=== PATIENT | female | born 1955 | race Caucasian/White ===

== ENCOUNTER → 2024-03-29 07:02 | Outpatient (REF) | payer MEDICARE, OTHER, SELFPAY ==
[2024-03-29 10:03] LABS: % Basophils 1.4 % (0-2); % Immature Granulocytes 0.2 % (0-0.5); % Lymphocytes 45.6 % (20.5-51.1); % Monocytes 9.5 % (1.7-9.3); % Neutrophils 39.3 % (42.2-75.2); Absolute Basophils 0.1 10^3/uL (0-0.2); Absolute Eosinophils 0.2 10^3/uL (0-0.7); Absolute Lymphocytes 2.3 10^3/uL (1.2-3.4); Absolute Monocytes 0.5 10^3/uL (0.1-0.6); Hematocrit 43.2 % (37.0-47.0); Hemoglobin 14.4 g/dL (12.0-16.0); Mean Corp Hgb Conc. 33.3 g/dL (33.0-37.0); Mean Corpuscular Hgb 31.2 pg (27.0-31.0); Mean Corpuscular Volume 93.7 fL (81.0-99.0); Mean Platelet Volume 9.9 fL (7.4-10.4); Nucleated Red Blood Cells % 0 %; Platelet Count 215 10^3/uL (130-400); Red Blood Cell Count 4.61 10^6/uL (4.20-5.40); Red Cell Dist. Width 13.9 % (11.5-14.5)
[2024-03-29 10:22] LABS: ALT (SGPT) 29 U/L (0-35); AST (SGOT) 40 U/L (14-36); Albumin 4.2 g/dl (3.5-5.0); Alkaline Phosphatase 79 U/L (38-126); Blood Urea Nitrogen 11 mg/dl (7-17); Calcium 9.5 mg/dl (8.4-10.2); Carbon Dioxide 27 mmol/L (22-30); Chloride 106 mmol/L (98-107); Glucose 91 mg/dl (70-99); HDL Cholesterol 57 mg/dl; LDL Cholesterol, Calculated 137 mg/dl; Sodium 142 mmol/L (135-145); Total Bilirubin 0.4 mg/dl (0.2-1.3); Total Cholesterol 216 mg/dl (50-199); Total Protein 6.9 g/dl (6.3-8.2); Triglyceride 111 mg/dl (10-149); Very Low Density Lipoprotein 22 mg/dl (0-30); eGFR > 60.00
[2024-03-29 10:48] LABS: TSH Reflex To Free T4 2.76 uIU/ml (0.47-4.68)
== END ==
LOC: HWLAB 07:02
PROVIDERS: ATTENDING PHYSICIAN Internal Medicine
DX: I10 Essential (primary) hypertension (principal); E66.9 Obesity, unspecified
CPT/HCPCS: 36415; 80053; 80061; 84443; 85025

== ENCOUNTER 2024-07-09 23:07 | Inpatient (IN) | payer MEDICARE, OTHER, SELFPAY ==
[2024-07-09 19:37] VITALS: BP 154/87
[2024-07-09 20:12] VITALS: BMI 33.0
--- NOTE | 2024-07-09 20:13 | ED.SKININJ ---
HPI-Injury
<Jacey Zimmermna, DAY CARE WORKER - Last Filed: 07/09/24 21:07>
General
Chief Complaint: Bite
Source: patient
Exam Limitations: none
Time Seen by Provider: 07/09/24 19:49
Nursing documentation reviewed up to this point in time: agreed with
History of Present Illness-Injury
Initial Injury comments:
68 yo female w h/o HTN, sleep apnea w CPAP, presents with infected dog bite left hand. Her basset hound bit her 2 days ago while playing tug-of-war. She has had 3 doses of Augmentin 875 mg, last dose 9 a.m. Denies fever/chills. Denies n/v. Area is
worsening.
Past History
<Jacey Zimmerman, DAY CARE WORKER - Last Filed: 07/09/24 21:07>
Past History
ED Past Medical History: HTN
ED Past Surgical History: Gynecological and Other (Nephrectomy)
Social History
Tobacco: Non-smoker
Alcohol: Occasional
Personal: Partner
Living: with roommate
Employment: Not employed
Review of Systems
<Jacey Zimmerman, DAY CARE WORKER - Last Filed: 07/09/24 21:07>
Review of Systems
Allergies reviewed?: Yes
All Other Systems: ROS reviewed and negative except as documented in HPI and ROS
Constitutional: Denies fever or chills
ABD/GI: Denies nausea
Skin: Reports other (Infected dog bite left hand)
Phy Exam
<Jacey Zimmerman, DAY CARE WORKER - Last Filed: 07/09/24 21:07>
Physical Exam
Physical Exam:
GENERAL: No acute distress. A&Ox3.
CONSTITUTIONAL: Afebrile.
RESPIRATORY: Regular respirations, nonlabored, lungs clear.
CARDIOVASCULAR: Regular rate and rhythm, no murmurs, no rubs.
GI: Soft, nontender, normal BS
MUSCULOSKELETAL: Significant swelling dorsum of left hand. Erythema of the dorsum extending one third of the forearm. The fingers are swollen but not erythematous, all tendon function intact but limited due to swelling and discomfort. Brisk
capillary refill. Well perfused.
SKIN: Warm, dry, pink. There is a puncture on the lateral dorsum left hand that is draining purulent material.
PSYCH: Normal mood and affect. Well kept, interactive and appropriate
NEUROLOGIC: Awake, alert and oriented. No focal neurological deficits. Sensation intact to touch distal finger
Course
<Jacey Zimmerman, DAY CARE WORKER - Last Filed: 07/09/24 21:07>
Orders/Labs/Results
Orders:
Orders
07/09/24 20:10
Wound Culture [Wound/Abscess/Other Culture] Urgent
JITENDRA Source: Hand
Specimen Description: Left
Date Specimen was Collected: 07/09/24
Time Specimen was Collected: 20:06
Comment: dog bite dorsum
07/09/24 20:20
Complete Blood Count/With Diff Urgent
Comprehensive Metabolic Panel Urgent
07/09/24 20:24
Ampicillin/Sulbactam 3 G [Unasyn] 3 gm 0.9% Sodium Chloride 100 ml [Nss] 100 ml IV NOW
07/09/24 22:00
Flush (0.9% Sodium Chloride) [Flush (Nss)] See Dose Instructions IV PER PROTOCOL
Abnormal Lab Results
07/09/24
20:20
WBC 11.1 H 10^3/uL
(4.8-10.8)
MCH 32.2 H pg
(27.0-31.0)
Absolute Neuts (auto) 8.5 H 10^3/uL
(1.4-6.5)
Absolute Monos (auto) 0.9 H 10^3/uL
(0.1-0.6)
Neutrophils % 76.9 H %
(42.2-75.2)
Lymphocytes % 13.8 L %
(20.5-51.1)
Glucose 119 H mg/dl
(70-99)
AST 83 H U/L
(14-36)
ALT 59 H U/L
(0-35)
07/09/24 20:20
07/09/24 20:20
Vital Signs
Initial and Last Documented VS:
Initial Vital Signs
Temp Pulse Resp BP Pulse Ox
97.8 F 84 18 154/87 98
07/09/24 19:37 07/09/24 19:37 07/09/24 19:37 07/09/24 19:37 07/09/24 19:37
Last Documented Vital Signs
Temp Pulse Resp BP Pulse Ox
97.8 F 84 18 154/87 98
07/09/24 19:37 07/09/24 19:37 07/09/24 19:37 07/09/24 19:37 07/09/24 19:37
<Selwyn Simental, DO - Last Filed: 07/09/24 20:23>
Orders/Labs/Results
Orders:
Orders
07/09/24 20:10
Wound Culture [Wound/Abscess/Other Culture] Urgent
JITENDRA Source: Hand
Specimen Description: Left
Date Specimen was Collected: 07/09/24
Time Specimen was Collected: 20:06
Comment: dog bite dorsum
07/09/24 20:20
Complete Blood Count/With Diff Urgent
Comprehensive Metabolic Panel Urgent
07/09/24 20:24
Ampicillin/Sulbactam 3 G [Unasyn] 3 gm 0.9% Sodium Chloride 100 ml [Nss] 100 ml IV NOW
07/09/24 22:00
Flush (0.9% Sodium Chloride) [Flush (Nss)] See Dose Instructions IV PER PROTOCOL
Abnormal Lab Results
07/09/24
20:20
WBC 11.1 H 10^3/uL
(4.8-10.8)
MCH 32.2 H pg
(27.0-31.0)
Absolute Neuts (auto) 8.5 H 10^3/uL
(1.4-6.5)
Absolute Monos (auto) 0.9 H 10^3/uL
(0.1-0.6)
Neutrophils % 76.9 H %
(42.2-75.2)
Lymphocytes % 13.8 L %
(20.5-51.1)
Glucose 119 H mg/dl
(70-99)
AST 83 H U/L
(14-36)
ALT 59 H U/L
(0-35)
07/09/24 20:20
07/09/24 20:20
Vital Signs
Initial and Last Documented VS:
Initial Vital Signs
Temp Pulse Resp BP Pulse Ox
97.8 F 84 18 154/87 98
07/09/24 19:37 07/09/24 19:37 07/09/24 19:37 07/09/24 19:37 07/09/24 19:37
Last Documented Vital Signs
Temp Pulse Resp BP Pulse Ox
97.8 F 84 18 154/87 98
07/09/24 19:37 07/09/24 19:37 07/09/24 19:37 07/09/24 19:37 07/09/24 19:37
<Jacey Zimmerman, DAY CARE WORKER - Last Filed: 07/09/24 21:07>
MDM/Problems Addressed
Differential Diagnosis Includes:
cellulitis
MDM/Problems Addressed:
68 yo female w h/o HTN, sleep apnea w CPAP, presents with infected dog bite left hand. Her basset hound bit her 2 days ago while playing tug-of-war. She has had 3 doses of Augmentin 875 mg, last dose 9 a.m. Denies fever/chills. Denies n/v. Area is
worsening.
Afebrile
Pt had hand xray yesterday: IMPRESSION:
Extensive soft tissue edema/swelling within the hand. No fractures identified. No radiopaque foreign bodies within the soft tissue.
Degenerative changes.
Case discussed with Dr. Simental who examined pt.
8:30 p.m.
I&D at puncture site with moderate amount pus drainage.
Wound culture pending
Plan: admit, IV antibiotics.
Hospitalist notified of admission.
<Jacey Zimmerman DAY CARE WORKER - Last Filed: 07/09/24 21:07>
*Critical Care Note
Total Time (30-74mins, 75-104mins- exclusive of procedures): Not Applicable
ED Attending Note
<Jacey Zimmerman DAY CARE WORKER - Last Filed: 07/09/24 21:07>
-
Portions of this chart may have been created with voice recognition software.� Occasional wrong word or��sound alike� substitutions may have occurred due to the inherent limitations of voice recognition software.
<Selwyn Simental, DO - Last Filed: 07/09/24 20:23>
ED Attending Note
Patient seen and examined by attending physician: Yes
I performed the substantive portion of visit, reviewed & personally made and approve the management plan that is documented in note by myself or XUAN.: Yes
ED Attending Note:
I have seen and evaluated the patient with a [id number] encounter. I have spoken to the advance practicer provider and involved in the medical history, the physical exam, medical decision making.
Evaluation and management service: agree unless noted differently below.
Results interpretation: agree unless noted differently below.
Focused HPI: 68-year-old female presenting with worsening swelling and pain to her left wrist. This is from a recent dog bite. She started amoxicillin but symptoms are worse
Physical exam: Significant swelling to the dorsum of left hand with active purulent discharge at the bite site
Medical Decision Making: Will open up the abscess to allow drainage and start IV antibiotics given failure of outpatient therapy. Will admit
Discharge Plan
Departure
Patient Disposition: Admit
Date of Disposition: 07/09/24
Time of Disposition: 20:37
Admit to: Med/Surg
Presentation/result/management discussed w/ accepting MD/DO: Hospitalist
Condition: Fair
Discharge Problem:
Dog bite of left hand with infection, Cellulitis of left hand
Prescriptions:
No Action
amlodipine 5 mg tablet
5 mg PO DAILY
Nature's Bounty 1 Tablet
1 tab PO DAILY
Referrals:
Louise Haynes DO [Family Provider] -
Interventions
Interventions:
*Risk Screen - Suicide Last Done: 07/09/24 19:29
*General Assessment Last Done: 07/09/24 19:37
*Neglect/Abuse Screening Last Done: 07/09/24 19:37
ED-Skin Assessment Last Done: 07/09/24 20:25
Discharge Date and Time
Print Language: ESTONIAN
[2024-07-09 20:30] LABS: % Basophils 0.5 % (0-2); % Eosinophils 0.5 % (0-6); % Immature Granulocytes 0.4 % (0-0.5); % Lymphocytes 13.8 % (20.5-51.1); % Monocytes 7.9 % (1.7-9.3); % Neutrophils 76.9 % (42.2-75.2); Absolute Basophils 0.1 10^3/uL (0-0.2); Absolute Eosinophils 0.1 10^3/uL (0-0.7); Absolute Lymphocytes 1.5 10^3/uL (1.2-3.4); Absolute Monocytes 0.9 10^3/uL (0.1-0.6); Absolute Neutrophils 8.5 10^3/uL (1.4-6.5); Hemoglobin 14.7 g/dL (12.0-16.0); Mean Corpuscular Hgb 32.2 pg (27.0-31.0); Mean Corpuscular Volume 92.1 fL (81.0-99.0); Mean Platelet Volume 9.7 fL (7.4-10.4); Nucleated Red Blood Cells % 0 %; Platelet Count 208 10^3/uL (130-400); Red Blood Cell Count 4.56 10^6/uL (4.20-5.40); Red Cell Dist. Width 13.5 % (11.5-14.5); White Blood Cell Count 11.1 10^3/uL (4.8-10.8)
[2024-07-09] MEDS: UNASYN IV (20:41)
[2024-07-09 20:43] LABS: ALT (SGPT) 59 U/L (0-35); AST (SGOT) 83 U/L (14-36); Albumin 4.5 g/dl (3.5-5.0); Alkaline Phosphatase 92 U/L (38-126); Blood Urea Nitrogen 12 mg/dl (7-17); Calcium 9.7 mg/dl (8.4-10.2); Carbon Dioxide 25 mmol/L (22-30); Chloride 100 mmol/L (98-107); Estimated Creatinine Clearance 74 ml/min; Glucose 119 mg/dl (70-99); Potassium 3.9 mmol/L (3.5-5.1); Sodium 136 mmol/L (135-145); Total Bilirubin 0.7 mg/dl (0.2-1.3); Total Protein 7.1 g/dl (6.3-8.2); eGFR > 60.00
--- NOTE | 2024-07-09 21:26 | HPS.HSE ---
Family Physician
-
Family Physician: Louise Haynes DO
Chief Complaint
-
dog bite
History of Present Illness
The patient is a 68 year old female with PMH significant for HTN and Sleep apnea on nightly CPAP (does not recall settings), who presented to the ED due to left hand dog bite Friday. She was playing with her own dog, and the dog accidentally bit
her. The dog is up to date with rabies shots and vaccines. Shortly after the bite, the wound became painful and swollen. She was started OP on Augmentin, but the pain became worse with tracking of redness past her wrist up to her forearm, pain, and
swelling to the finger tips. The bite was opened up/lanced open in the ED, purulent pus discharge was sent for cultures. She has had chills and nausea, no vomiting, no fever, no CP, no SOB, nor diarrhea.
Medical History
Past Medical History
Past Medical History: Reports Cancer (endometrial), HTN and Other (JULIETA on CPAP, kidney donor)
Past Surgical History: Reports Gynocological (HARSHA) and Other (one kidney, kidney donor)
Social History
Tobacco: Non-smoker
Alcohol: Daily (1-2 glasses of wine)
Drug: None
Personal: Other (lives with significant other)
Family History
Family History: CAD and Cancer
Allergies / Home Medications
Allergies reflects when Allergies were last updated in [facility].
Home Medications with original date entered in [facility]
Allergy/Medication List:
Allergies
Allergy/AdvReac Type Severity Reaction Status Date / Time
cephalexin Allergy Intermediate Swelling Verified 07/09/24 19:37
Home Medications
amlodipine 5 mg tablet 5 mg PO DAILY 07/09/24
multivitamin with calcium carb and iron tablet 1 tab PO DAILY 07/09/24
Review of Systems
-
A 12 point ROS was completed and negative except as noted: Yes
Physical Exam
Vital Signs
Vital Signs
Temp Pulse Resp BP Pulse Ox
97.8 F 84 18 154/87 98
07/09/24 19:37 07/09/24 19:37 07/09/24 19:37 07/09/24 19:37 07/09/24 19:37
Physical Exam
General: Well Developed, Well Nourished, No Apparent Distress, Conversant and Other (uncomfortable due to left hand pain)
HEENT: NormoCephalic, Anicteric and Moist mucous membranes
Respiratory: Clear
Cardiac: S1/S2 and Regular Rhythm
GI: Soft, Non Tender and Non Distended
Musculoskeletal: No Clubbing, No Cyanosis and No Edema
Skin: Warm, Dry and Other (left hand swollen, puncture wound left thenar region, normal capillary refill, tracking of redness up to forearm, dermatographia noticed on ventral aspect forearm that is new and nonpruritic)
Neuro: AO x 3 and No Motor Deficits
Psych: Calm
Laboratory Results
-
07/09/24 20:20
07/09/24 20:20
Laboratory Results
Total Bilirubin 0.7 mg/dl (0.2-1.3) 07/09/24 20:20
AST 83 U/L (14-36) H 07/09/24 20:20
ALT 59 U/L (0-35) H 07/09/24 20:20
Alkaline Phosphatase 92 U/L (38-126) 07/09/24 20:20
Data Reviewed
-
Diagnostic Radiology: Report Reviewed by me (hand x-ray Extensive soft tissue edema/swelling within the hand. No fractures identified. No radiopaque foreign bodies within the soft tissue.)
Impression/Plan
-
IMPRESSION:
The patient is a 68 year old female with PMH significant for HTN and Sleep apnea on nightly CPAP (does not recall settings), who presented to the ED due to left hand dog bite Friday. She was playing with her own dog, and the dog accidentally bit
her. The dog is up to date with rabies shots and vaccines. Shortly after the bite, the wound became painful and swollen. She was started OP on Augmentin, but the pain became worse with tracking of redness past her wrist up to her forearm, pain, and
swelling to the finger tips. The bite was opened up/lanced open in the ED, purulent pus discharge was sent for cultures. She has had chills and nausea, no vomiting, no fever, no CP, no SOB, nor diarrhea.
#Infected dog bite wound left hand that has progressively worsened after 48 hours despite oral antibiotics, lymphangitic spread
-X-ray with Extensive soft tissue edema/swelling within the hand. No fractures identified. No radiopaque foreign bodies within the soft tissue.
-Ortho consult placed
-cont IV abx Unasyn 3 g IV Q6H
-pending wound cultures
-supportive care, pain meds if needed, elevation, wound care
#JULIETA- nightly CPAP, pt does not have her personal CPAP , will use RT overnight
#HTN
-cont amlodipine and monitor
#Transaminitis AST 83 ALT 59
-follow labs, unclear etiology, history of elevated LFTs
DVT proph- PCDs
Full Code
[2024-07-09 21:48] VITALS: BP 142/67
[2024-07-10] VITALS (7 sets, daily range): BP systolic 134–150; BP diastolic 72–79; PULSE 80–84; BMI 31.4
[2024-07-10] MEDS: NSS 1000 IV (00:22)
[2024-07-10] MEDS: TYLENOL 650 MG PO (00:25)
--- NOTE | 2024-07-10 00:59 | PTCARENOTE ---
received pt from ed via stretcher. pt ambulated to bed without assist. aaox3, complains of pain in left hand with movement or touching. left hand wrapped in kerlix. oriented pt to floor, call belle within reach
[2024-07-10] MEDS: UNASYN IV ×4 (01:01→19:59)
[2024-07-10 06:48] LABS: % Basophils 0.8 % (0-2); % Eosinophils 0.7 % (0-6); % Immature Granulocytes 0.4 % (0-0.5); % Lymphocytes 19.8 % (20.5-51.1); % Monocytes 9.5 % (1.7-9.3); % Neutrophils 68.8 % (42.2-75.2); Absolute Basophils 0.1 10^3/uL (0-0.2); Absolute Eosinophils 0.1 10^3/uL (0-0.7); Absolute Lymphocytes 1.7 10^3/uL (1.2-3.4); Absolute Monocytes 0.8 10^3/uL (0.1-0.6); Absolute Neutrophils 5.9 10^3/uL (1.4-6.5); Hematocrit 39.6 % (37.0-47.0); Hemoglobin 13.7 g/dL (12.0-16.0); Mean Corp Hgb Conc. 34.6 g/dL (33.0-37.0); Mean Corpuscular Hgb 32.8 pg (27.0-31.0); Mean Corpuscular Volume 94.7 fL (81.0-99.0); Mean Platelet Volume 10.4 fL (7.4-10.4); Nucleated Red Blood Cells % 0 %; Platelet Count 204 10^3/uL (130-400); Red Blood Cell Count 4.18 10^6/uL (4.20-5.40); Red Cell Dist. Width 13.5 % (11.5-14.5); White Blood Cell Count 8.6 10^3/uL (4.8-10.8)
[2024-07-10 07:00] LABS: INR 1.08; PT 13.8 Sec (11.4-14.6)
[2024-07-10 07:47] LABS: ALT (SGPT) 50 U/L (0-35); AST (SGOT) 56 U/L (14-36); Albumin 3.8 g/dl (3.5-5.0); Alkaline Phosphatase 85 U/L (38-126); Blood Urea Nitrogen 9 mg/dl (7-17); Carbon Dioxide 25 mmol/L (22-30); Chloride 105 mmol/L (98-107); Estimated Creatinine Clearance 84 ml/min; Glucose 96 mg/dl (70-99); Potassium 3.6 mmol/L (3.5-5.1); Sodium 142 mmol/L (135-145); Total Bilirubin 0.6 mg/dl (0.2-1.3); Total Protein 6.3 g/dl (6.3-8.2); eGFR > 60.00
[2024-07-10] MEDS: NORVASC 5 MG PO (08:11)
--- NOTE | 2024-07-10 09:19 | CON.ORTHO ---
Consultation
-
Date/Time Consultation Requested: Jul 06/0006
Date/Time Consultation Performed: Jul 06/0815
Requesting Provider: Jone
Performing Provider: Yonathan for [facility]
Reason for Consultation: Left hand cellulitis s/p dog bite
Consultation - Orthopedics
History
Dictation#[id number]
Asked to see this pleasant 68 y/o white female with PMH endometrial Ca, HTN, JULIETA on CPAP, kidney donor, who was playing with her dog on Friday and was inadvertently bitten on the dorsal lateral left wrist/hand. Fortunately she is RHD. Dog's
vaccines up to date. Presented to her PCP on and was started on Augmentin. She was refractory to po ABX as symptoms were worsening. She presented to the ED last evening and her hand was lanced in the ED and packed with iodoform. Loose
sterile dressings applied. They sent for wound Cx, which are pending, and she was started on IV Unasyn. She originally presented with red streaking up the forearm but as of this AM she reports that has resolved. She is feeling and looking better
subjectively, but still sore and swollen. We were requested in consultation with regards to her hand injury
Allergies / Home Medications
Allergy/AdvReac Type Severity Reaction Status Date / Time
cephalexin Allergy Intermediate Swelling Verified 07/09/24 19:37
�Medication �Instructions �Recorded
amlodipine 5 mg tablet 5 mg PO DAILY Blood Pressure 07/09/24
multivitamin with calcium carb and 1 tab PO DAILY Supplement 07/09/24
iron tablet
Vital Signs / Lab Results
Temp Pulse Resp BP Pulse Ox
98.9 F 70 20 134/76 99
07/10/24 07:29 07/10/24 08:11 07/10/24 07:29 07/10/24 08:11 07/10/24 07:29
07/10/24 05:39
07/10/24 05:39
Assessment / Plan
PE: Afeb. Left hand dressed. Upon removal small punctate wound over the dorsal lateral wrist/hand. Iodoform packing visible, scant drainage. Surrounding edema with very mild erythema. No evidence of lymphangitis this AM. Wrist and hand stiff due to
swelling, but makes half a composite fist. Passive wrist motion not terribly painful. Elbow nontender. DNVI LUE
WBC WNL
Xrays: No fracture. Soft tissue swelling
Impression: Dog bite cellulitis Left wrist/hand
Plan: Discussed with the patient bedside. She appears to be responding to IV ABX. Currently Afeb WBC WNL. Will leave packing and loose dressing in place. Consider warm soaks after packing removal (tomorrow/Friday). Continue IV ABX. Will observe for
now. Have tentatively posted her to the OR schedule for tomorrow AM in case clinical picture worsens. This would be for a left wrist/hand I&D via [facility]. Operative site marked as the left wrist/hand. Surgical consent obtained. OR notified. NPO pMN.
Will make further decisions regarding OR in the AM. Will follow wound Cx, but this will not likely change treatment course.
--- NOTE | 2024-07-10 14:33 | W.PN.HOSP.TC ---
Today's Communication/Plan
-
continue abx
for tentative OR tomorrow
Assessment / Plan
Assessment / Plan
#Infected dog bite wound left hand
Failure of oral abx therapy
Lymphangitis of LUE
-X-ray with Extensive soft tissue edema/swelling within the hand. No fractures identified. No radiopaque foreign bodies within the soft tissue.
-Ortho evaluated and patient have been put on OR list tentatively for tomorrow.
-cont IV abx Unasyn 3 g IV Q6H
-pending wound cultures
#JULIETA
- nightly CPAP, pt does not have her personal CPAP
#HTN
-cont amlodipine and monitor
#Transaminitis AST 83 ALT 59
-follow labs, unclear etiology, history of elevated LFTs
DVT proph- PCDs
Full Code
Anticipated Discharge: Within 24 hours
Subjective/Interval History
-
Date of Service: July 10, 2024
some left hand pain
afebrile in night
no new issues
Objective Data
-
Labs:
Laboratory Results
07/10/24
05:39
WBC 8.6
Hgb 13.7
Hct 39.6
Plt Count 204
PT 13.8
INR 1.08
Sodium 142
Potassium 3.6
Chloride 105
Carbon Dioxide 25
BUN 9
Creatinine 0.6
Glucose 96
Calcium 9.0
Total Bilirubin 0.6
AST 56 H
ALT 50 H
Alkaline Phosphatase 85
Vital Signs:
Vital Signs
Temp Pulse Resp BP Pulse Ox
98.9 F 70 20 134/76 99
07/10/24 07:29 07/10/24 08:11 07/10/24 07:29 07/10/24 08:11 07/10/24 07:29
Review of Systems
-
Respiratory: Reports No Symptoms
Cardiac: Reports No Symptoms
Abdomen/GI: Reports No Symptoms
Physical Exam
-
General: No Apparent Distress and Comfortable
HEENT: Negative Oxygen
Respiratory: Clear to Auscultation
Cardiac: Regular Rhythm and S1/S2; Negative Murmur or Rub
GI: Soft, Nontender, Nondistended and Normal Bowel Sounds
Musculoskeletal: No Edema and Other (Left hand dressing in place)
Neuro: Awake, Alert, Oriented, No Motor Deficits and Nonfocal/Grossly Intact
Psych: Calm
[2024-07-11] MEDS: UNASYN IV ×4 (02:04→19:21)
[2024-07-11 03:10] VITALS: PULSE 88
[2024-07-11 07:30] VITALS: BP 111/51
[2024-07-11] MEDS: NORVASC 5 MG PO (08:24)
--- NOTE | 2024-07-11 08:26 | W.PN.UPDATE ---
Update Note
Progress Note Update
Left hand erythema improved dramatically but edema persists. Packing removed and dog bite then cleaned with Betadine. ROM diminished but only minimal pain w/ ROM testing. Light dressing applied. DNVI. No surgery at this time but continue to observe
while continuing IV ABXs. Initiate dilute Hibiclens soak. Elevation to control edema. Regular diet today but NPO after MN (only in the outside chance she worsens and needs to have I & D). Re-eval in am. If improving switch to oral ABX then home
tomorrow. Wound culture pending.
--- NOTE | 2024-07-11 13:13 | W.PN.HOSP.TC ---
Today's Communication/Plan
-
warm water soak
continue IV abx
tentative OR tomorrow based on clinical course
Assessment / Plan
Assessment / Plan
#Infected dog bite wound left hand
Failure of oral abx therapy
Lymphangitis of LUE
-X-ray with Extensive soft tissue edema/swelling within the hand. No fractures identified. No radiopaque foreign bodies within the soft tissue.
-cont IV abx Unasyn 3 g IV Q6H
-wound culture no growth so far.
-Ortho re-evluated today and recommended to continue IV abx for now. may need OR tomorrow.
-Hibiclans soaks ordere but no available, warm water soak to be done instead.
#JULIETA
- nightly CPAP, pt does not have her personal CPAP
#Essential HTN
-cont amlodipine and monitor
#Transaminitis AST 83 ALT 59
-follow labs, unclear etiology, history of elevated LFTs
DVT proph- PCDs
Full Code
Anticipated Discharge: 24 - 48 hours
Subjective/Interval History
-
Date of Service: July 11, 2024
denies pain in left hand
afebrile overnight
no other reported problems
Objective Data
-
Vital Signs:
Vital Signs
Temp Pulse Resp BP Pulse Ox
98.4 F 59 16 111/51 96
07/11/24 07:30 07/11/24 08:24 07/11/24 07:30 07/11/24 08:24 07/11/24 07:30
I&O
07/10/24 07/11/24 07/12/24
06:59 06:59 06:59
Intake Total 840 / 840
Balance 840 / 840
Review of Systems
-
Respiratory: Reports No Symptoms
Cardiac: Reports No Symptoms
Abdomen/GI: Reports No Symptoms
Physical Exam
-
General: No Apparent Distress and Comfortable
HEENT: Negative Oxygen
Respiratory: Clear to Auscultation
Cardiac: Regular Rhythm and S1/S2; Negative Murmur or Rub
GI: Soft, Nontender, Nondistended and Normal Bowel Sounds
Musculoskeletal: No Edema and Other (Left hand dressing in place, swollen fingers)
Neuro: Awake, Alert, Oriented, No Motor Deficits and Nonfocal/Grossly Intact
Psych: Calm
[2024-07-11 15:25] VITALS: BP 116/61
[2024-07-11 22:19] VITALS: PULSE 80
[2024-07-11 23:54] VITALS: BP 149/76
[2024-07-12] MEDS: UNASYN IV ×3 (01:45→14:15)
[2024-07-12] MEDS: FLUSH (NSS) 2 FLUSH IV ×2 (01:50→08:20)
[2024-07-12 03:06] VITALS: PULSE 81
--- NOTE | 2024-07-12 06:52 | W.PN.HOSP.TC ---
Today's Communication/Plan
-
-Discharged today after receiving next IV Unasyn
-Continue Augmentin PO at home .
Assessment / Plan
Assessment / Plan
Impression: 68 year old female with PMH significant of HTN and Sleep apnea on nightly CPAP (does not recall settings) who presented to the ED due to left hand dog bite Friday. She was playing with her own dog, and the dog accidentally bit her.
Shortly after the bite, the wound became painful and swollen. She was started on PO Augmentin on by her PCP, but the pain became worse with tracking of redness past her wrist up to her forearm, pain, and swelling to the finger tips. The
bite was opened up/lanced open in the ED, purulent pus discharge was sent for cultures. The patient was admitted to hospital and was started on IV Unasyn 3 g IV Q6H. Culture result did show no growth. Patient reports her hand swollen is better and
the redness decreased on her left hand. Orthopedic team saw her today and recommended to continue IV ABX with a hopeful transition to po in the next 24-48 upon discharge.
#Infected wound on left hand due dog bite
-Failure of oral abx therapy
-Lymphangitis of LUE: seems resolved. No phsical exam finding
-X-ray with Extensive soft tissue edema/swelling within the hand. No fractures identified. No radiopaque foreign bodies within the soft tissue
-Cont IV abx Unasyn 3 g IV Q6H
-WBC:5.5 0n 07/12 which dropped from 11.1 on 07/09
-Wound culture:no growth
-Ortho re-evaluated on 07/12:Continue warm water soaks. Continue with wrist, hand, and finger ROM, which will help with swelling. Will allow a diet. No need for surgery today. Continue IV ABX with a hopeful transition to po in the next 24-48
upon discharge. recommend Orthopedic FU at outpatient setting
-Will continue Augmentin at home
#JULIETA
- Nightly CPAP, pt does not have her personal CPAP
#Essential HTN
-Cont amlodipine and monitor
#Transaminitis
- AST 83 ALT 59
-follow labs, unclear etiology, history of elevated LFTs
DVT proph- PCDs
Full Code
Anticipated Discharge: Today
Subjective/Interval History
-
Date of Service: July 12, 2024
The patient reported feeling her hand still swollen but getting some improvement. She reports less redmess on her left hand comparing to yesterday.
Objective Data
-
Labs:
Laboratory Results
07/12/24
06:00
WBC Pending
Hgb Pending
Hct Pending
Plt Count Pending
Sodium Pending
Potassium Pending
Chloride Pending
Carbon Dioxide Pending
BUN Pending
Creatinine Pending
Glucose Pending
Calcium Pending
Vital Signs:
Vital Signs
Temp Pulse Resp BP Pulse Ox
99.5 F 70 18 149/76 99
07/11/24 23:54 07/11/24 23:54 07/11/24 23:54 07/11/24 23:54 07/11/24 23:54
I&O
07/10/24 07/11/24 07/12/24
06:59 06:59 06:59
Intake Total 840 / 840 360 / 360
Balance 840 / 840 360 / 360
Review of Systems
-
EENT: Reports No Symptoms Reported
Respiratory: Reports No Symptoms
Cardiac: Reports No Symptoms
Abdomen/GI: Reports No Symptoms
Genitourinary: Reports No Symptoms
Musculoskeletal: Reports Other (See HPI )
Skin: Reports No Symptoms and Other
Neuro: Reports No Symptoms
Physical Exam
-
General: Well Developed and Well Nourished
HEENT: Normocephalic and Atraumatic
Respiratory: Clear to Auscultation
Cardiac: Regular Rhythm and S1/S2
GI: Soft and Nontender
Musculoskeletal: Other ((left hand swollen, puncture wound left thenar region, some yellow drainage on the bandage) )
Skin: Warm
Neuro: Awake, Alert and Oriented
[2024-07-12 08:08] VITALS: BP 127/72
[2024-07-12] MEDS: NORVASC 5 MG PO (08:18)
[2024-07-12 08:20] LABS: Hematocrit 38.8 % (37.0-47.0); Hemoglobin 13.3 g/dL (12.0-16.0); Mean Corp Hgb Conc. 34.3 g/dL (33.0-37.0); Mean Corpuscular Hgb 32.7 pg (27.0-31.0); Mean Corpuscular Volume 95.3 fL (81.0-99.0); Mean Platelet Volume 9.5 fL (7.4-10.4); Platelet Count 224 10^3/uL (130-400); Red Blood Cell Count 4.07 10^6/uL (4.20-5.40); Red Cell Dist. Width 13.5 % (11.5-14.5); White Blood Cell Count 5.5 10^3/uL (4.8-10.8)
[2024-07-12] MEDS: FLUSH (NSS) 1 FLUSH IV (08:22)
[2024-07-12 08:56] LABS: Blood Urea Nitrogen 10 mg/dl (7-17); Calcium 9.3 mg/dl (8.4-10.2); Carbon Dioxide 25 mmol/L (22-30); Chloride 106 mmol/L (98-107); Estimated Creatinine Clearance 84 ml/min; Glucose 114 mg/dl (70-99); Potassium 3.8 mmol/L (3.5-5.1); Sodium 144 mmol/L (135-145); eGFR > 60.00
--- NOTE | 2024-07-12 10:50 | W.PN.UPDATE ---
Update Note
Progress Note Update
Patient with notable improvement of the left wrist and hand. Still some scant drainage from the I&D (bedside) site. erythema has essentially resolved. No evidence of lymphangitis. Expected edema. Passive ranging of the wrist without pain.
Fingers are still a bit stiff. I have advised as much elevation as possible. Continue warm water soaks. Continue with wrist, hand, and finger ROM, which will help with swelling. Will allow a diet. No need for surgery today. Continue IV ABX
with a hopeful transition to po in the next 24-48 upon discharge. recommend an outpatient orthopedic follow-up 3 to 5 days after discharge for clinical assessment
--- NOTE | 2024-07-12 13:11 | W.DCSUMMARY ---
Discharge Summary
Discharge Data
Date of Admission: 07/09/24
Date of Discharge: 07/12/24
-
Pending Results: No
Hospital Course
Principal Discharge diagnosis: Infected wound on left hand due dog bite
Chronic problems: JULIETA, HTN, Transaminitis
Hospital Course : 68 year old female with PMH significant of HTN and Sleep apnea on nightly CPAP (does not recall settings) who presented to the ED on 07/09 due to left hand dog bite Friday. She was playing with her own dog, and the dog
accidentally bit her. Shortly after the bite, the wound became painful and swollen. She was started on PO Augmentin on on 07/08 by her PCP, but the pain became worse with tracking of redness past her wrist up to her forearm, pain, and
swelling to the finger tips. The bite was opened up/lanced open in the ED, purulent pus discharge was sent for cultures. The patient was admitted to hospital and was started on IV Unasyn 3 g IV Q6H. Culture result did show no growth. Patient
reports her hand swollen is better and the redness decreased on her left hand today on 07/12. Orthopedic team saw her today and recommended to continue IV ABX with a hopeful transition to PO in the next 24-48 upon discharge and follow up with
Ortho clinic at Outpatient setting.
Problem #1: Infected wound on left hand due dog bite: The patient was started on IV Unasyn at admission. She reports less swelling and less redness on her hand. She does not have fever and WBC count results are in normal limits. Ortho
re-evaluated the patient today (07/12) recommending to continue warm water soaks. Continue with wrist, hand, and finger ROM, which will help with swelling. Will allow a diet. No need for surgery today. Continue IV ABX with a hopeful transition
to PO in the next 24-48 upon discharge. recommend Orthopedic FU at outpatient setting
-Will continue Augmentin at home
Other Problems #2: JULIETA, HTN, Transaminitis. Other chronic medical problems were rigoberto and did not require additional treatment.
Important imaging studies:
Hand X Ray on 07/08:
IMPRESSION:
Extensive soft tissue edema/swelling within the hand. No fractures identified. No radiopaque foreign bodies within the soft tissue.
Degenerative changes detailed above.
Discharge Plan
-
Patient Disposition: Home (Routine Discharge)
Discharge Diagnosis/Procedures: Left hand dog bite and cellulitis
Condition: Fair
Diet: Regular
Activity: As tolerated
Driving Restrictions: As prior to admission
Bathing Restrictions: OK to Shower
Referrals:
Jeff Smith PA-C [Specified Professional Personl] - in three to four days (post discharge date)
Louise Haynes DO [Family Provider] - in one week
Prescriptions:
New
amoxicillin-pot clavulanate 875-125 mg tablet
1 tab PO BID Qty: 10 0RF
Continued
amlodipine 5 mg tablet
5 mg PO DAILY
multivitamin-calcium carb-iron Tablet
1 tab PO DAILY
Discharge Orders:
Discharge Patient (As Directed); Ordered 07/12/24
Ordered By: Joe Gupta
Discharge Date and Time
Print Language: KHMER
--- NOTE | 2024-07-12 14:09 | W.PN.UPDATE ---
Update Note
Progress Note Update
I saw and evaluated the patient. I reviewed the resident�s note and agree with findings and plan as documented in the resident�s note.
#Infected dog bite wound left hand
Failure of oral abx therapy
Lymphangitis of LUE
-X-ray with Extensive soft tissue edema/swelling within the hand. No fractures identified. No radiopaque foreign bodies within the soft tissue.
-cont IV abx Unasyn 3 g IV Q6H
-wound culture no growth so far.
-Hibiclans soaks ordere but no available, warm water soak to be done instead.
-Ortho evaluated and no need of surgery,
-Patient currently on Unasyn, patient to finish 7 dose of oral Augmentin at home
-Follow-up with orthopedic surgery in office
#JULIETA
- nightly CPAP, pt does not have her personal CPAP
#Essential HTN
-cont amlodipine and monitor
#Transaminitis AST 83 ALT 59
-follow labs, unclear etiology, history of elevated LFTs
DVT proph- PCDs
Full Code
More than 30 minutes spent in discharge including
Final examination of the patient
Summarizing hospital stay
Instructions for continuing care to all relevant caregivers
Preparation of discharge records, prescriptions, and referral forms
Total time spent (in minutes): 38 mins
[2024-07-12 15:14] VITALS: BP 124/66
--- NOTE | 2024-07-12 15:26 | PTCARENOTE ---
pt was received from previous nurse, resting comfortably in bed. pt did not have any behavioral/verbal indicators of discomfort or pain. assessments remain the same. 1400 unasyn dose was provided. pt's bedside table, call belle, television remote and
telephone remain within reach
== END 2024-07-12 16:39 | disposition home or self-care (01) | DRG 603 ==
LOC: 4 EAST ACU 23:07
PROVIDERS: Registered Nurse; Student in an Organized Health Care Education/Training Program; ADMITTING PHYSICIAN Internal Medicine; ATTENDING PHYSICIAN Hospitalist; CONSULT PHYSICIAN Orthopaedic Surgery Hand Surgery; EMERGENCY PHYSICIAN Student in an Organized Health Care Education/Training Program; FAMILY PHYSICIAN Internal Medicine
PROC: 0H9GXZZ Drainage of Left Hand Skin, External Approach (ICD-10-PCS; 2024-07-09)
DX: L03.114 Cellulitis of left upper limb (principal); S61.452A Open bite of left hand, initial encounter; G47.33 Obstructive sleep apnea (adult) (pediatric); I10 Essential (primary) hypertension; R74.01 Elevation of levels of liver transaminase levels; W54.0XXA Bitten by dog, initial encounter; Z52.4 Kidney donor; Z90.5 Acquired absence of kidney; Z88.1 Allergy status to other antibiotic agents; Z85.42 Personal history of malignant neoplasm of other parts of uterus
CPT/HCPCS: 10060; 73130; 80048; 80053; 85025; 85027; 85610; 87070; 87205; 94660; 96365; 99284

== ENCOUNTER → 2024-07-26 10:59 | Outpatient (REF) | payer MEDICARE, OTHER, SELFPAY ==
[2024-07-26 15:47] LABS: ALT (SGPT) 21 U/L (0-35); AST (SGOT) 29 U/L (14-36); Albumin 4.3 g/dl (3.5-5.0); Alkaline Phosphatase 84 U/L (38-126); Blood Urea Nitrogen 15 mg/dl (7-17); Calcium 10.1 mg/dl (8.4-10.2); Carbon Dioxide 29 mmol/L (22-30); Chloride 101 mmol/L (98-107); Glucose 116 mg/dl (70-99); Potassium 4.2 mmol/L (3.5-5.1); Sodium 141 mmol/L (135-145); Total Bilirubin 0.3 mg/dl (0.2-1.3); Total Protein 6.8 g/dl (6.3-8.2); eGFR > 60.00
== END ==
LOC: HWLAB 10:59
PROVIDERS: ATTENDING PHYSICIAN Internal Medicine
DX: Z23 Encounter for immunization (principal)
CPT/HCPCS: 36415; 80053

== ENCOUNTER → 2024-10-12 08:07 | Outpatient (REF) | payer MEDICARE, OTHER, SELFPAY ==
[2024-10-12 09:49] LABS: ALT (SGPT) 26 U/L (0-35); AST (SGOT) 36 U/L (14-36); Albumin 4.2 g/dl (3.5-5.0); Alkaline Phosphatase 74 U/L (38-126); Blood Urea Nitrogen 11 mg/dl (7-17); Calcium 9.3 mg/dl (8.4-10.2); Carbon Dioxide 27 mmol/L (22-30); Chloride 104 mmol/L (98-107); Glucose 109 mg/dl (70-99); HDL Cholesterol 79 mg/dl; LDL Cholesterol, Calculated 113 mg/dl; Sodium 139 mmol/L (135-145); Total Bilirubin 0.7 mg/dl (0.2-1.3); Total Cholesterol 221 mg/dl (50-199); Total Protein 6.6 g/dl (6.3-8.2); Triglyceride 146 mg/dl (10-149); Very Low Density Lipoprotein 29 mg/dl (0-30); eGFR > 60.00
== END ==
LOC: HWLAB 08:07
PROVIDERS: ATTENDING PHYSICIAN Internal Medicine
DX: E66.9 Obesity, unspecified (principal); M25.551 Pain in right hip; Z90.5 Acquired absence of kidney; M47.812 Spondylosis without myelopathy or radiculopathy, cervical region; I10 Essential (primary) hypertension; Z78.0 Asymptomatic menopausal state
CPT/HCPCS: 36415; 80053; 80061

== ENCOUNTER → 2025-04-12 07:28 | Outpatient (REF) | payer MEDICARE, OTHER, SELFPAY ==
[2025-04-12 09:45] LABS: ALT (SGPT) 27 U/L (0-35); AST (SGOT) 32 U/L (14-36); Albumin 4.2 g/dl (3.5-5.0); Alkaline Phosphatase 62 U/L (38-126); Blood Urea Nitrogen 14 mg/dl (7-17); Calcium 9.5 mg/dl (8.4-10.2); Carbon Dioxide 29 mmol/L (22-30); Chloride 108 mmol/L (98-107); Glucose 105 mg/dl (70-99); Potassium 4.4 mmol/L (3.5-5.1); Sodium 143 mmol/L (135-145); Total Protein 6.8 g/dl (6.3-8.2); eGFR > 60.00
[2025-04-12 10:19] LABS: Glycohemoglobin (HgbA1c) 5.2 % (4.0-5.6)
== END ==
LOC: HWLAB 07:28
PROVIDERS: ATTENDING PHYSICIAN Internal Medicine
DX: R73.01 Impaired fasting glucose (principal); I10 Essential (primary) hypertension; E66.9 Obesity, unspecified; Z78.0 Asymptomatic menopausal state
CPT/HCPCS: 36415; 80053; 83036

== ENCOUNTER → 2025-06-15 08:01 | Outpatient (REF) | payer MEDICARE, OTHER, SELFPAY | LOC: HWRAD 08:01 | PROVIDERS: ATTENDING PHYSICIAN Internal Medicine | DX: Z12.31 Encounter for screening mammogram for malignant neoplasm of breast (principal); Z78.0 Asymptomatic menopausal state; Z13.820 Encounter for screening for osteoporosis | CPT/HCPCS: 77063; 77067; 77080 ==

== ENCOUNTER → 2025-06-18 06:22 | Outpatient (REF) | payer MEDICARE, OTHER, SELFPAY | LOC: MRI 06:22 | PROVIDERS: ATTENDING PHYSICIAN Internal Medicine | DX: M54.2 Cervicalgia (principal) | CPT/HCPCS: 72141 ==